=== PATIENT | female | born 1960 | race Two or more races ===

== ENCOUNTER 2018-02-10 14:07 | Emergency (ER) | payer OTHER ==
[~2018-02-10] VITALS: Ht 149.9 cm; Wt 45.4 kg
[2018-02-10 14:21] VITALS: BP 131/54
== END 2018-02-10 18:05 | disposition home or self-care (01) ==
LOC: ER 14:07
DX: J01.90 Acute sinusitis, unspecified (principal); J03.90 Acute tonsillitis, unspecified
CPT/HCPCS: 70450

== ENCOUNTER 2018-09-28 15:27 | Emergency (ER) | payer OTHER ==
[~2018-09-28] VITALS: Ht 149.9 cm; Wt 67.1 kg
[2018-09-28] MEDS ORDERED: KETOROLAC TROMETH 30 MG/ML 1ML VIAL IV ONE (16:30)
[2018-09-28] MEDS ORDERED: SODIUM CHLORIDE 0.9% 500 ML IVB ONE (16:30)
[2018-09-28 18:30] LABS: Basophils # (auto) 0 uL; Basophils % (auto) 0.4 % (0.0-2.0); Eosinophils # (auto) 0 uL; Eosinophils % (auto) 0.2 % (0.0-7.0); Hematocrit 39.2 % (36.0-46.0); Hemoglobin 12.8 g/dL (12.2-16.2); Lymphocytes # (auto) 1.9 uL; Lymphocytes % (auto) 19.3 % (10.0-50.0); Mean Corpuscular Hgb Conc. 32.5 g/dL (32.0-36.0); Mean Corpuscular Volume 83.1 fL (80.0-100.0); Monocytes # (auto) 1.1 uL; Monocytes % (auto) 11.5 % (0.0-12.0); Neutrophils # (auto) 6.8 uL; Neutrophils % (auto) 68.6 % (37.0-80.0); Nucleated Red Blood Cells % 0.1 %; Platelet Count (auto) 268 10^3/uL (140-450); Red Blood Cells 4.72 10^6/uL (4.0-5.20); Red Cell Distribution Width 13.3 % (11.8-14.3); White Blood Cell 9.8 10^3/uL (4.4-10.8)
[2018-09-28 18:53] LABS: Albumin 3.3 g/dL (3.4-5.0); Calcium 8.1 mg/dL (8.5-10.1); Potassium 3.5 mmol/L (3.5-5.1)
[2018-09-28 18:58] LABS: Bilirubin, Total 0.5 mg/dL (0.2-1.0); Total Protein 7.1 g/dL (6.4-8.2)
[2018-09-28 19:54] LABS: Urine Bacteria NONE SEEN /hpf (None Seen); Urine Blood TRACE /uL (Negative); Urine Specific Gravity 1.008 (1.001-1.035); Urine WBC 1 /hpf (0 - 5)
[2018-09-28] MEDS ORDERED: LIDOCAINE 1% HCL (LOCAL ANESTH.) INJ 20ML MDV ONE (20:17)
[2018-09-28] MEDS ORDERED: HYDROcodone-ACET 5/325MG TAB PO ONE (22:15)
[2018-09-28 22:18] LABS: Protein, CSF 57.5 mg/dL (15-45)
[2018-09-28 22:38] LABS: CSF White Blood Cells 3 CUMM (0-5)
[2018-09-28] MEDS ORDERED: cefTRIAXone 1GM/50ML D5W 50 ML IV ONE (23:00)
[2018-09-29] MEDS ORDERED: metroNIDAZOLE 500 MG TAB PO ONE (03:00)
[2018-09-29 03:01] VITALS: BP 79/57
== END 2018-09-29 03:29 | disposition home or self-care (01) ==
LOC: ER 15:37
DX: R10.30 Lower abdominal pain, unspecified (principal); M54.5 Low back pain; J34.89 Other specified disorders of nose and nasal sinuses; M54.2 Cervicalgia; J45.909 Unspecified asthma, uncomplicated; E11.9 Type 2 diabetes mellitus without complications; I10 Essential (primary) hypertension; E78.5 Hyperlipidemia, unspecified
CPT/HCPCS: 36415; 62270; 70450; 74176; 80053; 81001; 82150; 82945; 83605; 83690; 84157; 85025; 87040; 87070; 87205; 89051; 93005; 94761; 96361; 96365; 96375; 99285; J0696; J1885; J2001